=== PATIENT | male | born 2000 | race Caucasian/White ===

== ENCOUNTER 2019-11-13 07:37 | Emergency (ER) | payer OTHER ==
[~2019-11-13] VITALS: Ht 172.7 cm; Wt 60.4 kg
[2019-11-13] MEDS ORDERED: SERT-141 PO (07:45)
[2019-11-13 08:24] LABS: HEMATOCRIT 46.7 % (42.0-52.0); HEMOGLOBIN 15.4 g/dl (13.5-17.5); MEAN CORPUSCULAR HEMOGLOBIN 29.6 pg (27.0-33.0); MEAN CORPUSCULAR VOLUME 89.8 fl (80.0-96.0); PLATELET COUNT, AUTOMATED 243 10^3/uL (150-450); WHITE BLOOD COUNT 5.9 10^3/uL (4.0-10.0)
[2019-11-13 08:55] LABS: ACETAMINOPHEN LEVEL < 2.0 UG/ML (10.0-30.0); ALBUMIN 3.9 GM/DL (3.2-5.2); ALT/SGPT 19 U/L (12-78); BILIRUBIN,DIRECT 0.1 MG/DL (0.0-0.2); BILIRUBIN,TOTAL 0.4 MG/DL (0.2-1.0); BLOOD UREA NITROGEN 18 MG/DL (7-18); CALCIUM LEVEL 8.9 MG/DL (8.5-10.1); CARBON DIOXIDE LEVEL 29 MEQ/L (21-32); CHLORIDE LEVEL 106 MEQ/L (98-107); CREATININE FOR GFR 1.03 MG/DL (0.70-1.30); ETHYL ALCOHOL (ETHANOL) < 0.003 % (0.000-0.010); GLUCOSE, FASTING 88 MG/DL (70-100); POTASSIUM SERUM 4.1 MEQ/L (3.5-5.1); SALICYLATE LEVEL < 1.7 MG/DL (5.0-30.0); SODIUM LEVEL 142 MEQ/L (136-145); TOTAL PROTEIN 7.2 GM/DL (6.4-8.2)
[2019-11-13 13:18] LABS: AMPHETAMINES LEVEL URINE NEGATIVE (NEGATIVE); BARBITURATES URINE NEGATIVE (NEGATIVE); BENZODIAZEPINES URINE NEGATIVE (NEGATIVE); CANNABINOIDS URINE NEGATIVE (NEGATIVE); COCAINE METABOLITE URINE NEGATIVE (NEGATIVE); METHADONE URINE NEGATIVE (NEGATIVE); OPIATES URINE NEGATIVE (NEGATIVE); PHENCYCLIDINE URINE NEGATIVE (NEGATIVE)
[2019-11-13 13:24] LABS: ACETAMINOPHEN LEVEL < 2.0 UG/ML (10.0-30.0); ALBUMIN 3.9 GM/DL (3.2-5.2); ALT/SGPT 22 U/L (12-78); BILIRUBIN,DIRECT < 0.1 MG/DL (0.0-0.2); BILIRUBIN,TOTAL 0.4 MG/DL (0.2-1.0); TOTAL PROTEIN 7.1 GM/DL (6.4-8.2)
--- NOTE | 2019-11-13 16:25 | ECGEPIP ---
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
[2019-11-14 00:43] VITALS: BP 127/60
== END 2019-11-14 00:45 ==
LOC: M ED 07:37
DX: R45.851 Suicidal ideations (principal); F32.9 Major depressive disorder, single episode, unspecified; F17.200 Nicotine dependence, unspecified, uncomplicated; Z79.899 Other long term (current) drug therapy; Z91.5 Personal history of self-harm
CPT/HCPCS: 36415; 80048; 80076; 80307; 84443; 85027; 93005; 99285; G0480

== ENCOUNTER 2022-08-01 19:14 | Inpatient (IN) | payer BC, OTHER ==
[~2022-08-01] VITALS: Ht 172.7 cm; Wt 65.0 kg
[~2022-08-01 19:14] MED LIST: SERT-141 PO
[2022-08-02] MEDS ORDERED: MOM 30ML SUSPENSION UDC PO PRN (04:45)
[2022-08-02] MEDS ORDERED: traZODone 50 MG TAB PO PRN (04:45)
[2022-08-02] MEDS ORDERED: MAALOX 30 ML SUSP *UDC PO PRN (04:45)
[2022-08-02] MEDS ORDERED: IBUPROFEN 400MG TAB PO PRN (04:45)
[2022-08-02] MEDS ORDERED: HOME MED LIST COMPLETE! XX SCH (05:40)
[2022-08-02 08:40] VITALS: BP 125/59
[2022-08-02 16:20] VITALS: BP 110/56
[2022-08-03 06:33] VITALS: BP 117/51
[2022-08-03] MEDS: NICOTINE 21MG/24HR 1 EA TRANSDERMAL TD SCH (09:44)
[2022-08-03] MEDS: ESCITALOPRAM OXALATE 10 MG TAB (LEXAPRO) PO SCH (09:44)
[2022-08-03 16:30] VITALS: BP 120/61
[2022-08-03] MEDS: MIRTAZAPINE 7.5MG PER 1/2 TABLET PO SCH (20:52)
[2022-08-04 07:01] VITALS: BP 114/63
[2022-08-04] MEDS: ESCITALOPRAM OXALATE 10 MG TAB (LEXAPRO) PO SCH (08:17)
[2022-08-04] MEDS: NICOTINE 21MG/24HR 1 EA TRANSDERMAL TD SCH (08:19)
[2022-08-04 16:24] VITALS: BP 117/58
[2022-08-04] MEDS: MIRTAZAPINE 7.5MG PER 1/2 TABLET PO SCH (21:35)
[2022-08-05 06:24] VITALS: BP 106/51
[2022-08-05] MEDS: NICOTINE 21MG/24HR 1 EA TRANSDERMAL TD SCH (07:48)
[2022-08-05] MEDS: ESCITALOPRAM OXALATE 10 MG TAB (LEXAPRO) PO SCH (07:48)
[2022-08-05] MEDS ORDERED: LEXA1TAB PO (09:49)
[2022-08-05] MEDS ORDERED: MIRT-10 PO (09:49)
[2022-08-05] MEDS ORDERED: NICO21PAT TD (09:49)
== END 2022-08-05 13:30 | disposition home or self-care (01) | DRG 754 ==
LOC: EDBD 19:14 → M ED 19:14 → M ED INP 08-02 04:42 → M PSY 08-02 08:54
PROVIDERS: ADMIT Student in an Organized Health Care Education/Training Program; ATTEND Student in an Organized Health Care Education/Training Program
DX: F32.A Depression, unspecified (principal); F41.9 Anxiety disorder, unspecified; F60.89 Other specific personality disorders; F17.290 Nicotine dependence, other tobacco product, uncomplicated